=== PATIENT | female | born 1985 | race Caucasian/White ===

== ENCOUNTER 2022-11-25 15:54 | Outpatient (OUT) | payer OTHER, SELFPAY ==
--- NOTE | 2022-11-25 15:55 | US_ITS ---
The [address] [address] Patient Name: JOHN AYON MRN: [id number] date: 1985 Sex: F Assigned Patient Location: US Current Patient Location: Accession/Order Number: [id number] Exam Date: 11/25/2022 16:02 Report Date: 11/27/2022 05:48 At the request of: NON-STAFF PHYSICIAN Procedure: US extremity nonvascular RT EXAM: US extremity nonvascular RT HISTORY: Lump of skin R22.9 COMPARISON: None. TECHNIQUE: Grayscale and color ultrasound FINDINGS: Identified along the right buttock corresponding to the patient's palpable mass is a focal hypoechogenic mass measuring 1.7 x 0.7 x 2.6 cm, oval. This lesion demonstrates peripheral hypervascularity. This lesion is within the subcutaneous fat superficial to the muscle US/US extremity nonvascular RT IMPRESSION: 2.6 cm hypoechogenic mass with peripheral hypervascularity corresponding to the patient's palpable abnormality. This lesion is indeterminate. This mass is amenable to ultrasound biopsy Electronically authenticated by: TRACEE FINE Date: 11/27/2022 05:48
== END 2022-11-25 15:55 | disposition home or self-care (01) ==
LOC: US 15:54
DX: R22.9 Localized swelling, mass and lump, unspecified (principal)
CPT/HCPCS: 76882

== ENCOUNTER 2024-09-06 10:02 | Emergency (ER) | payer OTHER, SELFPAY ==
--- OUTSIDE RECORDS SUMMARY | 2024-08-13 06:30 | XMS_ITS ---
Author Organization [facility] Address [address] [place] [address] Care Team Providers Care Rock Drill Operator Name Role Phone Paris Correa Primary Care Provider REASON FOR VISIT PAP Encounters Encounter Location Date Provider Diagnosis [facility] [address] [place] [address] 08/13/2024 Paris Correa Plan Of Treatment No Information Progress Notes * SWAPNA AYONOB: 7 (39 yo F)Acc No.[id number]:08/13/2024 Progress Notes Patient: JOHN WAGNER Appointment Provider: Jaydon Correa DO :1985 A ge:39 Y S ex:Female Date:08/13/2024 Address:[facility] [address] [id number] Subjective: * Chief Complaints: * 1 . PAP. * Medical History: Objective: * Vitals: Assessment: Plan: * Treatment: Care Plan: * Problems: * Images: * Electronic signature of Buster Correa DO on 09/06/2024 at 10:15 AM EDT Sign off status: Pending * Appointment Provider: Jaydon Correa DO Date: 08/13/2024 Generated for Printi ng/Faxing/eTransmitting on: 0 09/06/2024 10:15 AM EDT
--- OUTSIDE RECORDS SUMMARY | 2024-09-02 11:00 | XMS_ITS ---
Author Organization [facility] Address [address] [place] [address] Care Team Providers Care Tax Specialist Name Role Phone Paris Correa Primary Care Provider REASON FOR VISIT PAP Encounters Encounter Location Date Provider Diagnosis [facility] [address] [place] [address] 09/02/2024 Paris Correa Plan Of Treatment No Information Progress Notes * SWAPNA AYONOB: 7 (39 yo F)Acc No.[id number]:09/02/2024 Progress Notes Patient: JOHN WAGNER Appointment Provider: Jaydon Correa DO :1985 A ge:39 Y S ex:Female Date:09/02/2024 Address:[facility] [address]-[id number] Subjective: * Chief Complaints: * 1 . PAP. * Medical History: Objective: * Vitals: Assessment: Plan: * Treatment: Care Plan: * Problems: * Images: * Electronic signature of Buster Correa DO on 09/06/2024 at 10:15 AM EDT Sign off status: Pending * Appointment Provider: Jaydon Correa DO Date: 09/02/2024 Generated for Printi ng/Faxing/eTransmitting on: 09/06/2024 10:15 AM EDT
--- OUTSIDE RECORDS SUMMARY | 2024-09-06 10:15 | XMS_ITS | Clinical Summary ---
Author Organization [facility] Address [address] [place] [address] Care Team Providers Care Financial Services Officer Name Role Phone Cherie Nieto CNP Primary Care Provider [phone] ParentFranco bonilla DO Unavailable [phone] Allergies Active Allergy Reactions Criticality Noted Date Comments Latex Rash,Itching 07/19/2012 Medications No known medications Active Problems No known active problems Family History Medical History Relation Comments Cancer Paternal Grandfather Cancer Paternal Grandmother Relation Status Comments Paternal Grandfather Paternal Grandmother Social History Tobacco Use Types Packs/Day Years Used Date Smoking Tobacco: Every Day Alcohol Use Standard Drinks/Week Comments No 0 (1 standard drink = 0.6 oz pur e alcohol) Area Deprivation Index Answer Date Golden rded National Score (1-100), lower number is lower ri sk 87 01/09/2023 State Score (1-10), lower number is lower risk 8 01/09/2023 Data from: https://www.neighborhoodatlas.medicine.[facility].edu/. Last address used for calculation [address] [place] [address] 01/09/2023 Comments Unknown Sex and Gender Information Value Date Recorded Sex Assigned at Not on file Legal Sex Female 2:52 PM EST Gender Identity Not on file Sexual Orientation Not on file Plan of Treatment Health Maintenance Due Date Last Done Comments Anxiety Screening 2004 Depression Screening 2004 HIV Screening 2004 Hepatitis C Screening 2004 DTaP,Tdap,Td Vaccine (1 - Tdap) 2005 Hepatitis B Vaccine (1 of 3 - 19+ 3-dose series) 07/11 Cervical Cancer Screening 07/12/2007 Covid-19 Vaccine (2023-25 season) 2023 Influenza Vaccine (Season Ended) 2024 Insurance [place] [employer] Care Teams Financial Services Officer Relationship Specialty Start Date End Date Cherie Nieto, MILLING MACHINE SET UP OPERATOR [address] [place] [address] PCP - General Family Medicine 05/18/12 Franco Vinson DO [address] [place] [address] Referring 10/26/22
--- OUTSIDE RECORDS SUMMARY | 2024-09-06 10:15 | XMS_ITS | Clinical Summary ---
Author Organization [facility] Address [address] [place] [address] Care Team Providers Care Installer Interior Assemblies Name Role Phone Unavailable Primary Care Provider Unavailabl e Social History Tobacco Use Types Packs/Day Years Used Date Smoking Tobacco: Never Assessed Comments Unknown Sex and Gender Information Value Date Recorded Sex Assigned at Not on file Legal Sex Female 6:56 PM EDT Gender Identity Not on file Sexual Orientation Not on file Plan of Treatment Not on file Insurance [place] [employer]
--- OUTSIDE RECORDS SUMMARY | 2024-09-06 10:15 | XMS_ITS | Patient Health Record ---
Author Organization [facility] Address [address] [place] [address] Care Team Providers Care Contracts Analyst Name Role Phone Paris Correa Primary Care Provider Allergies Allergen (clinical drug ingredient) Drug/Non Drug Allergy documented on EMR Reaction Allergy Type Onset Date Status Latex latex (uncoded) hives Allergy Acti ve Reason For Referral Reason *FAXED 07/30 - FAXED REFERRAL UPDATE 08/08 referral to swine extension field specialist for chronic urticaria Diagnosis 1 Chronic urticaria (L 50.8) Referral Organization [facility] ice Referring Provider First Name Paris Referring Provider Last Name Sunny Referred Provider VISHAL CARMICHAEL Referred Provider Specialty Allergy/Immu nology Referral Priority Routine Medications Medication SIG (Take, Route, Frequency, Duration) Notes Start Date End Date Status Lurasidone HCl 20 MG 1 tablet in the evening with food Orally as directed for 7 days titration starting dose 10/13/2022 Not-Taking Topamax 50 MG 1 tablet Orally Once a day Not-Taking Vitamin D (Cholecalciferol) 25 MCG (1000 UT) 1 capsule Orally Once a day for 90 days 02/02/2025 Active hydrOXYzine HCl 25 MG 1 tablet as needed for anxiety Orally twice a day (bid) as needed (prn) for 30 day(s) 09/07/2022 Not-Taking QUEtiapine Fumarate 25 MG 3 tablets at night Orally Once a day for 30 days 09/07/2022 Not-Taking Depo-Provera 150 MG/ML 1 mL Intramuscular Not-Takin g Cetirizine HCl 10 MG 1 tablet Orally Once a day for 90 days 07/31/2024 Active Propranolol HCl 40 MG 1 tablet Orally twice a day (bid) as needed (prn) for 30 day(s) 09/07/2022 Not-Taking Albuterol Sulfate HFA 108 (90 Base) MCG/ACT 1 puff as needed Inhalation every 4 hrs for 30 days Active Vivitrol 380 MG as directed Intramuscular Not-Taking Lurasidone HCl 40 MG 1 tablet in the evening with food Orally as directed for 30 days start after completing 7 days of 20mg dose 09/29/2022 Not-Taking ZyrTEC 10 MG 1 tablet Orally Once a day for 90 days Active Social History Tobacco Use: Social History Observation Description Date Details (start date - stop date) Current Smoker NA - NA Tobacco Screen: Question Answer Notes Are you a: current smoker How often do you smoke cigarettes? every day How many cigarettes a day do you smoke? 11-20 How soon after you wake up do you smoke your fir st cigarette? within 5 min Are you interested in quitting? Not ready to felisha t Sexual Hx: Question Answer Notes Had sex in the last 12 months (vaginal, oral, or anal)? Yes with Men only Use protection? No Prevention Strategies discussed: Condoms Have you ever had an STD? Yes Other? Yes LMP: nov 30 2018 Alcohol Screening: Question Answer Notes Did you have a drink contain ing alcohol in the past year? Yes How often did you have a dri nk containing alcohol in the past year? Monthly or less (1 point) How many drinks did you have on a typical day when you were drinking in the past year? 1 or 2 (0 points) How often did you have six o r more drinks on one occasion in the past year? Never (0 points) Points 1 Interpretation Negative Depression Screening (PHQ-9): Question Answer Notes Little interest or pleasure in doing things More than half the days Feeling down, depressed, or hopeless More than h fran the days Trouble falling or staying a sleep, or sleeping too much More than half the days Feeling tired or having little energy More than half the days Poor appetite or overeating More than half the d ays Feeling bad about yourself-o r that you are a failure or have let yourself or your family down More than half the days Trouble concentrating on thi ngs, such as reading the newspaper or watching television More than half the days Moving or speaking so slowly that other people could have noticed. Or the opposite being so fidgety or restless that you have been moving around a lot more than usual More than half the days Thoughts that you would be b goyo off , or of hurting yourself in some way Not at all Total Score 16 Intepretation Moderately severe depression Section Notes: previously marijuana use and herion use. previously marijuana use and herion use. previously marijuana use and herion use. previously marijuana use and herion use. Problems Problem Type SNOMED Code ICD Code Onset Dates Problem Status W/U Status Risk Notes Problem Tobacco user (260992422) Nicotine dependence, unspecified, uncomplicated (F17.200) Active confirmed Problem 091999726 Bipolar disorder , current episode mixed, moderate (F31.62) Active confirmed Problem 86404393 Vitamin D deficiency (E55.9) Active confirmed Problem Bronchitis (95359173) Bronchitis (J40) Active confirmed Problem Thyroid nodule (009674214) Thyroid nodule (E04.1) Active confirmed Problem Tobacco abuse (9777638465) Tobacco abuse (Z72.0) Active confirmed Problem 95990840 Weight loss (R63.4) Active confirmed Problem 725451176 Mild intermitten t asthma without complication (J45.20) Active confirmed Problem Bipolar affective disorder, currently depressed, moderate (356436822) Bipolar 1 disorder, depressed, moderate (F31.32) Active confirmed Problem 420232013 Encounter to establish care (Z76.89) Active confirmed Problem 42523287 Hypertension, unspecified type (I10) Active confirmed Problem 874227669 Subclinical hyperthyroidism (E05.90) Active confirmed Problem 40921482 Other hyperlipidemia (E78.49) Active confirmed Problem 423515209 Abnormal thyroid ultrasound (R93.89) Active confirmed Problem 192344531 Homozygous Facto r V Leiden mutation (D68.51) Active confirmed Vital Signs Heart Rate 88 /min 07/29/2024 Respiratory Rate 18 /min 07/29/2024 Oximetry 97 % 07/29/2024 Blood pressure diastolic 81 mm Hg 07/29/2024 Height 5ft 3in in 07/29/2024 Blood pressure systolic 115 mm Hg 07/29/2024 Weight 115 lbs 07/29/2024 BMI 20.37 kg/m2 07/29/2024 Encounters Encounter Location Date Provider Diagnosis [facility] [address] [place] [address] 07/30/2024 Paris Correa Vitamin D deficiency E55.9 and Chronic urticaria L50.8 [facility] [address] [place] [address] 08/05/2024 Paris Correa Vitamin D deficiency E55.9 [facility] [address] [place] [address] 07/29/2024 Paris Correa Vitamin D deficiency E55.9 ; Chronic urticaria L50.8 ; Bipolar 1 disorder, depressed, moderate F31.32 ; Encounter to establish care with new doctor Z76.89 ; Encounter for screening for cardiovascular disorders Z13.6 ; Homozygous Factor V Leiden mutation D68.51 ; Weight loss R63.4 ; Fatigue, unspecified type R53.83 ; Mild intermittent asthma without complication J45.20 ; Tobacco abuse Z72.0 and Thyroid nodule E04.1 Assessments Encounter Date Diagnosis (ICD Code) Assessment Notes Treatment Notes Treatment Clinical Notes Section Notes 07/29/2024 Vitamin D deficiency (ICD-10 - E55.9) Patient has a history of Vitamin D deficiency with last reported level <10. Patient currently on daily supplementation. Endorses fatigue and cold intolerance. We will repeat labs at this time. 07/29/2024 Chronic urticaria (ICD-10 - L50.8) Patient endorses frequent episodes of urticaria with last steroid course in Apr 2024. Patient is currently maintained on Zyrtec for symptoms with poor relief. No current hives at this time. States they come in flares in the winter. Based on history and severity of symptoms, we will refer patient to swine extension field specialist for testing. 07/30/2024 Vitamin D deficiency (ICD-10 - E55.9) 08/05/2024 Vitamin D deficiency (ICD-10 - E55.9) 07/29/2024 Bipolar 1 disorder, depressed, moderate (ICD-10 - F31.32) Patient is managed by psychiatrist in [place]. She endorses fat loss at site of injections. Advised patient to discuss with her psychiatrist and alternate injection sites. 07/30/2024 Chronic urticaria (ICD-10 - L50.8) 07/29/2024 Encounter to establish care with new doctor (ICD-10 - Z76.89) Patient establishing with new PCP. 07/29/2024 Encounter for screening for cardiovascular disorders (ICD-10 - Z13.6) Patient due for screening labwork. 07/29/2024 Homozygous Factor V Leiden mutation (ICD-10 - D68.51) Patient has history of homozygous Factor V Leiden. She is followed by Dr. Aguilar for hematology. Per report, patient is scheduled for detail extractions and will need anticoagulation, managed by Dr. Aguilar. 07/29/2024 Weight loss (ICD-10 - R63.4) Patient endorses weight loss, fatigue, and cold intolerance. Patient has a history of thyroid nodules per report, will repeat TSH labs. 07/29/2024 Fatigue, unspecified type (ICD-10 - R53.83) Patient endorses weight loss, fatigue, and cold intolerance. Patient has a history of thyroid nodules per report, will repeat TSH labs. 07/29/2024 Mild intermittent asthma without complication (ICD-10 - J45.20) Current every day smoker. Patient endorses wheeze that is controlled with infrequent use of albuterol. Denies nightime awakenings. 07/29/2024 Tobacco abuse (ICD-10 - Z72.0) Patient current everyday smoker of tobacco. History of 1ppd x 25 years. Counseled patiet on tobacco cessation including available pharmacologic options. Patient is not interested in stopping at this time. 07/29/2024 Thyroid nodule (ICD-10 - E04.1) Patient endorses weight loss, fatigue, and cold intolerance. Patient has a history of thyroid nodules per report, will repeat TSH labs. 07/29/2024 Other Body Mass Index : Care Instructions material was published Plan Of Treatment Pending Test Test Name Order Date Comprehensive Metabolic Panel 07/29/2024 Lipid Panel 07/29/2024 Thyroid Stim Hormone w/Rflx 07/29/2024 Vitamin D 25 Hydroxy 07/29/2024 Complete Blood Count Auto Diff LDL Cholesterol Measured 07/29/2024 Insurance Providers Payer Name Payer Address Payer Phone Subscriber Number Group Number Insured Name Patient Relationship to Insured Coverage Start Date Coverage End Date [place] [employer] [address] [address] [place] [address] [id number] JOHN AYON Self - patient is the insured 3 [facility] [address] [place] [address] [id number] JOHN AYON Self - patient is the insured 3 [facility] [address] [address] [place] [address] [id number] JOHN AYON Self - patient is the insured 1 3 [employer] after [facility] [address] [place] [address] [id number] JOHN AYON Self - patient is the insured 1 3 [facility] [place] [employer] [address] [address] [place] [address] [id number] JOHN AYON Self - patient is the insured 3 5 ap [facility] [address] [place] [address] [id number] JOHN AYON Self - patient is the insured 3 [facility] [place] [employer] [address] [address] [place] [address] [id number] JOHN AYON Self - patient is the insured 3 [facility] [address] [place] [address] [id number] JOHN AYON Self - patient is the insured 3 Medical (General) History Medical History History ICD Code bipolar panic disorder generalized anxiety borderline personality GERD COPD Surgical History Surgery Date(Month/Year) laproscopy gall bladder 2012 Hospitalization History Reason Date(Month/Year) see above
[2024-09-06 10:18] VITALS: BP 138/96; PULSE 88; TEMP 37.2; O2SAT 99; BMI 21.3
[2024-09-06 10:38] VITALS: O2SAT 97
--- NOTE | 2024-09-06 11:02 | ED.GENADUL1 ---
HPI HPI - General Adult General Chief complaint: Abdominal Pain Stated complaint: PAIN IN LOWER ABDOMEN Time Seen by Provider: 09/06/24 10:36 Source: patient Mode of arrival: walk-in History of Present Illness HPI narrative: Patient is a 31-year-old female who is presenting to the ER today with chief complaint of ongoing chronic left lower quadrant pain. Patient says the pain started last Monday, approximately 7 days ago. Patient said the pain has been waxing waning last weekend. Patient notes that she had intercourse with her boyfriend on Monday that was causing severe pain. The pain has then been coming and going since Monday. Patient states the pain is minimal at this time but present to the left lower inguinal area, left lower quadrant. Patient does have a history of endometritis. No constipation. Patient is not using any control. She does not have a gallbladder. 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 Patient took a Tylenol last night, patient took nothing for her pain today. Patient is a G3, P0. Patient is on the control, though not using condoms. Patient does not believe that she is . Patient is due for her menses in 1 week. Patient has no vaginal bleeding, discharge, rash or concerns for STD. Patient has history of endometriosis and ovarian cyst. All systems are negative except as noted/marked. All systems reviewed and otherwise negative. Nurses note and vital signs reviewed and patient is not hypoxic. Patient is very comfortable when I walk into the room, she is lying in bed, laughing, playing on her cell phone General: The patient appears well and in no apparent distress. Patient is resting comfortably on cart. Patient is not toxic, lethargic, or listless Skin: Warm, dry, no pallor noted. There is no rash noted. No petechiae, purpura. Head: Normocephalic, atraumatic Eye: Normal conjunctiva, no drainage, EOMI. PERRL Ears, Nose, Mouth, and Throat: oral mucosa is moist. Nares patent. Mouth without vesicles. Cardiovascular: Regular Rate and Rhythm, no murmur, gallop, rub Respiratory: Patient is in no distress, no accessory muscle use, lungs are clear to auscultation, no wheezing, rales or rhonchi Back: non-tender, no CVA tenderness bilaterally to percussion. No CT LS midline pain GI: Patient has mild tenderness palpation to the left lower inguinal/pelvic area. No suprapubic tenderness to palpation. No right lower pelvic/inguinal tenderness to palpation. No lymphadenopathy to bilateral inguinal area. No rash. No flank pain bilateral. The rest of her abdomen is soft, no peritoneal signs, no tenderness to palpation, no masses appreciated. No rebound, guarding, or rigidity noted. No distention Musculoskeletal: Patient has full range of motion of all of the extremities, no motor, sensory, or focal neurological deficits Neurological: A&O x4, normal speech Psychiatric: Cooperative Related Data Home Medications ?Medication ?Instructions ?Recorded ?Confirmed albuterol sulfate 90 mcg/actuation 1 puff inhalation Q4H PRN 09/06/24 09/06/24 aerosol inhaler shortness of breath or wheezing cholecalciferol (vitamin D3) 25 25 mcg PO DAILY 09/06/24 09/06/24 mcg (1,000 unit) capsule lorazepam 1 mg tablet 1 mg PO DAILY PRN anxiety 09/06/24 09/06/24 lurasidone 80 mg tablet 80 mg PO QPM 09/06/24 09/06/24 sumatriptan succinate 100 mg tablet 100 mg PO Q2H PRN migraine headache 09/06/24 09/06/24 trazodone 150 mg tablet 150 mg PO QPM PRN insomnia 09/06/24 09/06/24 venlafaxine 75 mg capsule,extended 75 mg PO QAM 09/06/24 09/06/24 release 24 hr Previous Rx's ?Medication ?Instructions ?Recorded hydrocodone 5 mg-acetaminophen 325 1 tab PO Q4H PRN pain #4 tabs 09/06/24 mg tablet Allergies Allergy/AdvReac Type Severity Reaction Status Date / Time No Known Drug Allergies Allergy Verified 09/06/24 10:22 [facility] Medical History (Updated 09/06/24 @ 11:23 by Juan Nagy MD) Homozygous Factor V Leiden mutation ?D68.51 - Activated protein C resistance (ICD-10) Cyst of ovary ?N83.209 - Unspecified ovarian cyst, unspecified side (ICD-10) Migraine ?G43.909 - Migraine, unspecified, not intractable, without status migrainosus (ICD-10) Anxiety ?F41.9 - Anxiety disorder, unspecified (ICD-10) Bipolar 1 disorder ?F31.9 - Bipolar disorder, unspecified (ICD-10) Endometriosis ?N80.9 - Endometriosis, unspecified (ICD-10) Social History Little interest or pleasure in doing things: not at all Feeling down, depressed, or hopeless: not at all Exam Constitutional Vital Signs, click to edit/add: Last Vital Signs Temp 98.9 F 09/06/24 10:18 Pulse 88 09/06/24 10:18 Resp 18 09/06/24 10:18 BP 138/96 H 09/06/24 10:18 Pulse Ox 97 09/06/24 10:38 O2 Del Method Room Air 09/06/24 10:38 Course Vital Signs Vital signs: Vital Signs Temperature 98.9 F 09/06/24 10:18 Pulse Rate 88 09/06/24 10:18 Respiratory Rate 18 09/06/24 10:18 Blood Pressure 138/96 H 09/06/24 10:18 Pulse Oximetry 99 09/06/24 10:18 Oxygen Delivery Method Room Air 09/06/24 10:18 Temperature 98.9 F 09/06/24 10:18 Pulse Rate 88 09/06/24 10:18 Respiratory Rate 18 09/06/24 10:18 Blood Pressure 138/96 H 09/06/24 10:18 Pulse Oximetry 97 09/06/24 10:38 Oxygen Delivery Method Room Air 09/06/24 10:38 Medical Decision Making [facility] Narrative Medical decision making narrative: Patient seen and examined: Urine, , Tylenol Motrin will be given. Patient has no acute indication for any lab or radiographic imaging at this time. Her pain is mild. Pain has been intermittent since last Monday. History of endometriosis and ovarian cyst. She has no history of kidney stone Differential diagnosis includes but is not limited to: UTI, pyelonephritis, , kidney stone Diagnostics and management: Patient will have laboratory studies urine shows no acute findings, negative. Shared decision making: I discussed with the patient the necessary laboratory findings and radiological findings. Social barriers to healthcare: There are no food insecurities, there is no issue with transportation, there are no insurance barriers. Disposition: I discussed with the patient to follow-up with her PCP next Monday. Outpatient lab work, radiographic imaging could be done if indicated. Patient has no new acute emergent process today that requires lab testing or radiographic testing. Patient's exam shows mild pain to left lower inguinal/pelvic area. Patient is not . Patient's pain is mild. No acute consistent pain today or this past week besides intercourse on Monday. Education given on endometriosis and ovarian cyst. No acute indication for ultrasound today just to rule out ovarian cyst. This was explained to patient. Patient's exam is not presenting like acute ectopic , tubo-ovarian cyst, no acute indication for testing, patient's pain is mild Lab Data Labs: Lab Results 09/06/24 Range/Units 10:24 Urine Color Yellow (YELLOW) Urine Clarity Clear (CLEAR) Urine pH 7.0 (5.0-9.0) Ur Specific [place] 1.020 (1.005-1.025) Urine Protein Negative (NEG/TRACE) mg/dL Urine Glucose (UA) Negative (NEGATIVE) mg/dL Urine Ketones Negative (NEGATIVE) mg/dL Urine Occult Blood Negative (NEGATIVE) Urine Nitrite Negative (NEGATIVE) Urine Bilirubin Negative (NEGATIVE) Urine Urobilinogen 0.2 (0.2-1.0) EU/dL Ur Leukocyte Esterase Negative (NEGATIVE) Urine HCG, Qual Negative (NEGATIVE) Discharge Plan Discharge Chief Complaint: Abdominal Pain Clinical Impression: Pelvic pain Patient Disposition: Home, Self-Care Time of Disposition Decision: 11:21 Condition: Fair Prescriptions / Home Meds: New hydrocodone-acetaminophen 5-325 mg tablet 1 tab PO Q4H PRN (Reason: pain) Qty: 4 0RF No Action albuterol sulfate 90 mcg/actuation HFA aerosol inhaler 1 puff INHALATION Q4H PRN (Reason: shortness of breath or wheezing) cholecalciferol (vitamin D3) 25 mcg (1,000 unit) capsule 25 mcg PO DAILY lorazepam 1 mg tablet 1 mg PO DAILY PRN (Reason: anxiety) lurasidone 80 mg tablet 80 mg PO QPM sumatriptan succinate 100 mg tablet 100 mg PO Q2H PRN (Reason: migraine headache) trazodone 150 mg tablet 150 mg PO QPM PRN (Reason: insomnia) venlafaxine 75 mg capsule,extended release 24hr 75 mg PO QAM Print Language: Czech Instructions: Endometriosis (ED), Ovarian Cyst (ED), Pelvic Pain in Women (ED), Pelvic Pain (ED) Additional Instructions: Follow-up with your scheduled appointment on Wednesday at the [facility] for additional testing and care. Education on endometriosis and ovarian cyst was given to you for educational purposes only. I am not diagnosing you with endometriosis or ovarian cyst. If you are having any significant acute pain, intractable nausea, vomiting, or any other acute concerns, return back to the ER. Follow-up with your appointment on Monday for further outpatient testing as indicated Alternate Tylenol and either Motrin, Advil, or ibuprofen every 4 hours to help with pain. If you are having severe pain, substitute a [place] tablet instead of Tylenol. Do not take Tylenol and [place] at the same time, you may actually take too much Tylenol at 1 setting or in 1 day. Maximum Tylenol dose of Tylenol is 3000 mg a day. Maximum dose of either Motrin, Advil, or ibuprofen is 2400 mg a day. Referrals: [facility] [Primary Care Provider] - 1 week
[2024-09-06 11:12] LABS: Bilirubin Urine NEGATIVE (NEGATIVE); Blood Urine NEGATIVE (NEGATIVE); Clarity Urine CLEAR (CLEAR); Color Urine YELLOW (YELLOW); Glucose Urine UA NEGATIVE (NEGATIVE); Ketones Urine NEGATIVE (NEGATIVE); Leukocyte Esterase Urine NEGATIVE (NEGATIVE); Nitrite Urine NEGATIVE (NEGATIVE); Protein Urine NEGATIVE (NEG/TRACE); Urobilinogen Urine 0.2 EU/dL (0.2-1.0)
[2024-09-06 11:14] LABS: HCG Qualitative Urine* NEGATIVE (NEGATIVE); Internal Control Within Normal Limits
[2024-09-06] MEDS: ACETAMINOPHEN 500 MG TABLET PO (11:35)
[2024-09-06] MEDS: IBUPROFEN 600 MG TABLET PO (11:35)
[2024-09-06 11:38] VITALS: PULSE 87; O2SAT 98
[2024-09-06 11:39] LABS: WBC Urine 0-2 #/HPF (NONE SEEN)
[2024-09-06 11:40] LABS: Bacteria Urine LARGE #/HPF (NONE SEEN); Cast Seen? NONE SEEN #/LPF (NONE SEEN); Crystals Seen? None Seen #/HPF (None Seen); Mucus Urine LARGE (NONE SEEN); RBC Urine 0-2 #/HPF (0-2); Squamous Epithelial Cell Urine MANY #/LPF (NONE/RARE); Urine Culture Indicated YES-FRMC
== END 2024-09-06 11:41 | disposition home or self-care (01) ==
PROVIDERS: Emergency Provider Emergency Medicine
DX: R10.2 Pelvic and perineal pain (principal)
CPT/HCPCS: 81001; 84703; 87086; 99283